=== PATIENT | male | born 1955 | race Caucasian/White ===

== ENCOUNTER 2025-01-19 09:10 | Day surgery (SDC) | payer MEDICARE, BC, SELFPAY ==
[2025-01-19] VITALS (13 sets, daily range): BP systolic 113–132; BP diastolic 49–75; PULSE 16–77; RESP 14–77; TEMP 36.4–37; O2SAT 92–99; BMI 29.4
--- OUTSIDE RECORDS SUMMARY | 2025-01-19 09:16 | XMS_ITS ---
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 Past Treatment and Therapy Plans No past plan information found. Radiation Treatments * Course 1X Prostate bed 03/09/2018 - 05/03/2018 Treatment Period Energy Fraction Dose Fractions Total Dose Plans Planned F1 prost bed 04/05/2018 - 05/03/2018 180 cGy 39 / 39 7,020 cGy Reference Points Delivered [id number] 04/05/2018 - 05/03/2018 7,020 cGy icru ref 04/05/2018 - 04/08/2018 4,269 cGy
--- OUTSIDE RECORDS SUMMARY | 2025-01-19 09:16 | XMS_ITS | Clinical Summary ---
Author Organization [facility] Address [address] [place] [address] Care Team Providers Care Bar Finish Operator Name Role Phone Unavailable Primary Care Provider Unavailabl e Source Comments Patient records contain information from all sites at [facility]. For routine questions regarding patient records, call [phone] during business hours, M-F 8:00 AM - 5:00 PM Central Time. Record requests for emergency care only can be directed to [phone] at any time.[facility] Allergies No known active allergies Medications LORazepam (ATIVAN) 0.5 mg tablet Take 1 tablet by mouth as needed for anxiety. anxiety 01/15/2018 Active atorvastatin (LIPITOR) 40 mg tablet Take 1 tablet by mouth at bedtime. 12/20/2020 Active Active Problems Problem Noted Date Diagnosed Date Rising Prostate Specific Ant igen Following Treatment For Malignant Cancer Of Prostate 06/09/2023 Primary Malignant Neoplasm Of Prostate 8 Social History Tobacco Use Types Packs/Day Years Used Date Smoking Tobacco: Never Smokeless Tobacco: Never Tobacco Cessation:Counseling Given: Not Answered Humiliation, Afraid, Rape, and Kick questionnair e Answer Date Recorded Within the last year, have y ou been afraid of your partner or ex-partner? No 06/04/2023 Within the last year, have y ou been humiliated or emotionally abused in other ways by your partner or ex-partner? No Within the last year, have y ou been kicked, hit, slapped, or otherwise physically hurt by your partner or ex-partner? No 06/04/2023 Within the last year, have y ou been raped or forced to have any kind of sexual activity by your partner or ex-partner? No 06/04/2023 Social Connection and Isolat ion Panel [NHANES] Answer Date Recorded In a typical week, how many times do you talk on the phone with family, friends, or neighbors? Once a week 05/05/2022 How often do you get togethe r with friends or relatives? Once a week 05/05/2022 How often do you attend chur ch or amish services? Never 05/05/2022 Do you belong to any clubs o r organizations such as anglican groups, unions, fraternal or athletic groups, or school groups? Yes 05/05/2022 How often do you attend meet ings of the clubs or organizations you belong to? More than 4 times per year 05/05/2022 Are you , , di vorced, , never , or living with a partner? 05/05/2022 AUDIT-C Answer Date Recorded Q1: How often do you have a drink containing alc ohol? 2-3 times a week 05/05/2022 Q2: How many drinks containi ng alcohol do you have on a typical day when you are drinking? 1 or 2 05/05/2022 Q3: How often do you have si x or more drinks on one occasion? Never 05/05/2022 Overall Financial Resource Strain (CARDIA) Answe r Date Recorded How hard is it for you to pa y for the very basics like food, housing, medical care, and heating? Not hard at all 06/04/2023 [facility] - Occupational Stress Questionnaire Answer Date Recorded Do you feel stress - tense, restless, nervous, or anxious, or unable to sleep at night because your mind is troubled all the time - these days? To some extent 05/05/2022 Exercise Vital Sign Answer Date Recorde d On average, how many days pe r week do you engage in moderate to strenuous exercise (like a brisk walk)? 3 days 06/04/2023 On average, how many minutes do you engage in exercise at this level? 30 min 06/04/2023 Hunger Vital Sign Answer Date Recorded Within the past 12 months, y ou worried that your food would run out before you got the money to buy more. Never true 06/04/20 23 Within the past 12 months, t he food you bought just didn't last and you didn't have money to get more. Never true 06/04/2023 PRAPARE - Transportation Answer Date Re corded In the past 12 months, has l ack of transportation kept you from medical appointments or from getting medications? No 04/2023 In the past 12 months, has l ack of transportation kept you from meetings, work, or from getting things needed for daily living? No 06/04/2023 Nutrition Answer Date Recorded Nutrition: EVOO Fat Source Yes 06/04 On average, how many serving s of fruits and vegetables do you eat per day (serving size is equal to 1 cup or approximately the size of a tennis ball)? 3-5 06/04/2023 Dental Answer Date Recorded Dental: Regular Dentist Yes 05/05/20 Employment Answer Date Recorded Employment status Retired 06/04/2023 Housing Stability Answer Date Recorded What is your living situation today? I have a [facility] place to live 06/04/2023 Education Answer Date Recorded What is the highest level of school you have completed or the highest degree you have received? 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 Body Mass Index 30.04 03/01/2018 10:47 AM CDT Plan of Treatment Health Maintenance Due Date Last Done Comments CT Colonography 1957 Cologuard 1957 FIT 1955 Hepatitis C Screening 1955 COVID-19 Vaccine ( season) 2024 12/04/2023, 12/17/2022, 04/23/2022, Additional history exists Influenza Vaccine (#1) 2024 , 12/17/2022, 09/10/2021, Additional history exists Depression Screening (Annual PHQ-2) 11/30/2024 Fall Risk Screen (Annual) 11/30/2024 Fasting Glucose for Diabetes Screening 12/04/2026 12/04/2023, 04/23/2022, 12/20/2020, Additional history exists DTaP,Tdap,and Td Vaccines (3 - Td or Tdap) 12/14/2029 12/14/2019, 07/11/2010 Colonoscopy 11/13/2032 11/13/2022 Colorectal Cancer Screening 11/13/2032 Zoster Vaccines Completed 04/23/2022, 12/20/2020 Pneumococcal vaccine (50+ years) Completed 12/17/2022 IPV Vaccines Aged Out No longer eligi ble based on patient's age to complete this topic Insurance [facility]
--- OUTSIDE RECORDS SUMMARY | 2025-01-19 09:16 | XMS_ITS | Clinical Summary ---
Author Organization [employer] [facility] Address [address] [place] [address] Care Team Providers Care Netbackup Engineer Name Role Phone Dillon Sanders MD Primary Care Provider Aysha Gonzalez RN Unavailable Allergies No known active allergies Medications aspirin (ECOTRIN) 81 mg enteric coated tabletIndications: Type 2 diabetes mellitus without complication, without long-term current use of insulin (HC) Take 1 Tablet (81 mg) by mouth once daily with a meal. 4 Active atorvastatin (LIPITOR) 40 mg tabletIndications: Mixed hyperlipidemia Take 1 Tablet (40 mg) by mouth at bedtime. 90 Tablet 3 5 Active LORazepam (ATIVAN) 0.5 mg tabIndications:Anx iety Take one tablet by mouth twice daily as needed for anxiety 20 Tablet 5 Active LORazepam (ATIVAN) 0.5 mg tabIndications:Anx iety Take one tablet by mouth twice daily as needed for anxiety 20 Tablet 4 12/30/19 25 Discontin ued(Reord er (E-cancel not sent)) atorvastatin (LIPITOR) 40 mg tabletIndications: Mixed hyperlipidemia TAKE ONE TABLET BY MOUTH AT BEDTIME . 90 Tablet 5 12/30/19 25 Discontin ued(Reord er (E-cancel not sent)) Active Problems Problem Noted Date Diagnosed Date Overweight 03/16/2024 Type 2 diabetes mellitus wit hout complication, without long-term current use of insulin 12/15/2023 Inguinal hernia, right 12/04/2023 Mixed hyperlipidemia 08/29/2015 Colon polyp 10/31/2011 Overview (11/18/2022): Colonoscopy 10/2011 polyps repeat in 3 years Colonoscopy 07/2017 hyperplastic polyp repeat in 5 years Colonoscopy 10/2022 polyps, repeat in 5 years High triglycerides 06/25/2011 Umbilical hernia without mention of obstruction or gangrene 06/25/2011 Malignant neoplasm of prostate 06/15/2007 Resolved Problems Problem Noted Date Diagnosed Date Resolved Date Low HDL (under 40) 10/08/2011 Left knee pain 06/25/2011 04/23/2022 Routine general medical exam ination at a health care facility 06/25/2011 12/20/2020 Renal colic 06/15/2007 04/23/2022 Prediabetes 12/15/2023 Encounters Date Type Department Care Team Description 01/16/2025 9:45 AM [employer]YWALL FINISHING FOREMAN Ancillary Procedure [address] [address] Arrived 01/15/2025 Travel 01/04/2025 9:30 AM [employer]YWALL FINISHING FOREMAN Office Visit [address] [address] Jocelyn Galvez MD Consult (Right inguinal hernia) 01/04/2025 Travel 12/31/2024 Travel 12/30/2024 9:15 AM [employer]YWALL FINISHING FOREMAN Office Visit [address] [address] Dillon Sanders MD Medicare ANNUAL (subsequent) Visit (69 year old); Follow Up (Discuss hernia) 12/30/2024 Travel 12/26/2024 Travel 12/09/[address] [place] [address] Dillon Sanders MD Refill Request (Atorvastatin) from Last 3 Months Immunizations Name Administration Dates Next Due COVID-19 VACCINE SPIKEVAX (M ODERNA 50MCG/0.5ML) 12YO+ PFS 12/30/2024,12/04/2023 COVID-19 vaccine (DataSphereBio NTech 30mcg/0.3mL) 12YO+ BIVALENT PF, MDV 12/17/2022 COVID-19 vaccine (Perosphere-Bio NTech 30mcg/0.3mL) 12YO+ KATHY-SUCROSE PF, MDV 04/23/2022 COVID-19 vaccine (Pfizer-Bio NTech 30mcg/0.3mL) PF, MDV 03/05/2021,02/12/2021 Influenza A (H1N1), Inactivated 11/13/2009 Influenza Virus, Unspecified 08/20/2015 Influenza, IIV3 (Age >=3 years) 08/25/2011,08/30 Influenza, IIV4 11/13/2016,09/05/2013 Influenza, IIV4 (=>6mos) MDV 08/17/2020, 09/26/2019,08/31/2018,2016,08/20/2015 Influenza, Inactivated AIIV4 (Age 65+ Years) Preserv Free 12/04/2023,12/17/2022 Influenza, Inactivated IIV3 (Age 65+ Years) Preserv Free 12/30/2024 Influenza, Injectable, Mdck, Quadrivalent, W/preservative 09/10/2021 Pneumococcal Conj 20-valent (Prevnar 20) 12/17/2022 Td (Age >=7 Years) 07/10/1998 Td, Preservative Free (age > = 7 Years) 12/14/2019 Tdap 07/11/2010 Zoster (Shingrix-RZV, recombinant) 04/23/2022, Family History Medical History Relation Name Comments Diabetes Brother 1 Bernardino Diabetes Mother Rafael Cancer-colon Neg. 1 Heart Disease Neg. 2 Cancer Paternal Grandfather Melanom a: at age 57 if meloma Diabetes Sister 2 Jerrianne Anesthesia Problem No Family History Blood Disease No Family History Relation Name Status Comments Brother 1 Bernardino Alive Brother 2 J Carlos Alive Brother 3 Ford Alive Father Felipe Alive Mother Rafael Alive Neg. 1 Neg. 2 Paternal Grandfather Sister 1 Jerriann Alive Sister 2 Jerrianne Social History Tobacco Use Types Packs/Day Years Used Date Smoking Tobacco: Former Pipe Smokeless Tobacco: Never Tobacco Cessation:Counseling Given: No Alcohol Use Standard Drinks/Week Comments Not Currently 0 (1 standard drink = 0.6 oz pur e alcohol) PHQ-2 Answer Date Recorded PHQ-2 TOTAL SCORE 0 12/30/2024 Social Connections Answer Date Recorded Do you often feel lonely or isolated from those around you? 0 12/30/2024 Financial Resource Strain Answer Date R ecorded Difficulty of Paying Living Expenses 3 12/30/2024 Difficulty of Paying Living Expenses Not on file 12/30/2024 Food Insecurity Answer Date Recorded Do you worry your food will run out before you are able to buy more? 1 12/30/2024 Transportation Needs Answer Date Record ed Does lack of transportation keep you from medica l appointments? 1 12/30/2024 Does lack of transportation keep you from work, meetings or getting things that you need? 1 12/30/2024 Housing Stability Answer Date Recorded What is your housing situation today? 1 12/30/2024 Utilities Answer Date Recorded Do you have trouble paying f or utilities (for example, heat, electricity, water, phone)? 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 Not on file Not on file Obstetrics History Last Filed Vital Signs Vital Sign Reading Time Taken Comments Blood Pressure 126/74 01/04/2025 9:23 AM DRYWALL FINISHING FOREMAN Pulse 75 01/04/2025 9:23 AM DRYWALL FINISHING FOREMAN Temperature 37.1 C (98.8 F) 12/03/2022 1:51 PM DRYWALL FINISHING FOREMAN Respiratory Rate - - Oxygen Saturation 100% 01/04/2025 9:23 AM DRYWALL FINISHING FOREMAN Inhaled Oxygen Concentration - - Weight 89.4 kg (197 lb 1.6 oz) 01/04/2025 9:23 A M [employer]YW[employer] FINISHING FOREMAN Height 172.7 cm (5' 8) 12/30/2024 9:11 AM DRYWALL FINISHING FOREMAN Body Mass Index 29.97 12/30/2024 9:11 AM DRYWALL FINISHING FOREMAN Plan of Treatment Health Maintenance Due Date Last Done Comments COVID-19 vaccine series ( season) 2025 12/30/2024, 12/04/2023, 12/17/2022, Additional history exists BMI (ht and wt on same day) for age 18+ 12/30/2025 12/30/2024, 12/04/2023, 04/23/2022, Additional history exists Depression screening for age 12+ 12/30/2025 12/30/2024, 12/04/2023, 12/04/2023, Additional history exists Medicare Wellness for age 65+ 12/31/2025 12/30/2024, 12/04/2023 Colonoscopy through age 75 11/13/202711/13, 11/13/2022, 11/13/2022, Additional history exists Tetanus booster 12/14/2029 12/14/2019, 06/30, 07/10/1998 Lipids for age 45-75 12/30/2029 12/30/2024, 12/04/2023, 04/23/2022, Additional history exists RSV vaccine for adults or (1 - 1-dose 75+ series) 2032 Tdap Completed 07/11/2010 Hepatitis C screening for ag e 18-79 Completed 08/21/2015, 08/21/2015 Zoster (shingles) series for age 50+ Completed 04/23/2022, 12/20/2020 Pneumococcal series for age 50+ Completed 3 Influenza for age 65+ Completed 12/30/2024 , 12/04/2023, 12/17/2022, Additional history exists AAA screening age 65-74 Completed 01/16/2025 Procedures Procedure Name Priority Date/Time Associated Diagnosis Comments US AORTA Routine 01/16/2025 10:03 AM DRYWALL FINISHING FOREMAN Screening for AAA (abdominal aortic aneurysm) LIPID PANEL W REFLEX MEASURED LDL Routine 12/30/2024 10:05 AM DRYWALL FINISHING FOREMAN Type 2 diabetes mellitus without complication, without long-term current use of insulin (HC) PSA TOTAL Routine 12/30/2024 10:05 AM DRYWALL FINISHING FOREMAN Prostate cancer (HC) BASIC METABOLIC PANEL Routine 12/30/2024 10:05 AM DRYWALL FINISHING FOREMAN Type 2 diabetes mellitus without complication, without long-term current use of insulin (HC) VITAMIN D 25 (DEFICIENCY) Routine 12/30/2024 10:05 AM DRYWALL FINISHING FOREMAN Vitamin D insufficiency HEMOGLOBIN A1C MONITORING (POCT) Routine 12/30/2024 10:04 AM DRYWALL FINISHING FOREMAN Type 2 diabetes mellitus without complication, without long-term current use of insulin (HC) URINE ALBUMIN TO CREATININE RATIO, RANDOM Routine 12/30/2024 10:03 AM DRYWALL FINISHING FOREMAN Type 2 diabetes mellitus without complication, without long-term current use of insulin (HC) COLONOSCOPY SCREENING Routine 11/13/2022 9:34 AM DRYWALL FINISHING FOREMAN History of colon polyps ANTI HCV Routine 08/21/2015 9:00 AM CDT Need for hepatitis C screening test from Last 3 Months or Most Recently Relevant to Health Maintenance Results * US AORTA (01/16/2025 10:03 AM DRYWALL FINISHING FOREMAN) Anatomical Region Laterality Modality Abdomen, AORTA Ultrasound 01/16/2025 12:5 6 PM DRYWALL FINISHING FOREMAN Narrative 01/16/2025 12:56 PM DRYWALL FINISHING FOREMAN For Patients: As a result of the Cures Act, medical imaging exams and procedure reports are released immediately into your electronic medical record. You may view this report before your referring provider. If you have questions, please contact your health care provider. Indication: Screening for abdominal aortic aneurysm Technique: Ultrasound aorta utilizing grayscale and color flow techniques Comparison: None Findings: Proximal aorta: Obscured by bowel gas. Mid aorta: 2.2 x 2.0 centimeters. Distal aorta: 1.8 by 2.0 centimeters. Right common iliac: 1.3 centimeters. Left common iliac: 1.1 centimeter. No significant atherosclerotic calcifications. Vessels are patent by color flow. Impression: No abdominal aortic aneurysm. Dictated by Keo Crooks MD @ 01/16/2025 12:56:24 PM (Electronically Signed) Procedure Note Keo Crooks MD - 01/16/2025 For Patients: As a result of the Cures Act, medical imagingexams and procedure reports are released immediately into your electronicmedical record. You may view this report before your referring provider.If you have questions, please contact your health care provider. Indication: Screening for abdominal aortic aneurysm Technique: Ultrasound aorta utilizing grayscale and color flow techniques Comparison: None Findings: Proximal aorta: Obscured by bowel gas. Mid aorta: 2.2 x 2.0 centimeters. Distal aorta: 1.8 by 2.0 centimeters. Right common iliac: 1.3 centimeters. Left common iliac: 1.1 centimeter. No significant atherosclerotic calcifications. Vessels are patent by color flow. Impression: No abdominal aortic aneurysm. Dictated by Keo Crooks MD @ 01/16/2025 12:56:24 PM (Electronically Signed) Dillon Sanders MD Final Result * (ABNORMAL) LIPID PANEL W REFLEX MEASURED LDL (12/30/2024 10:05 AM DRYWALL FINISHING FOREMAN) CHOLESTEROL, TOTAL 116 <200 mg/dL [facility] HDL CHOLESTEROL 30(L) > OR = 40 mg/dL [facility] TRIGLYCERIDES 73 <150 mg/dL [facility] LDL-CHOLESTEROL 71 mg/dL (calc) [facility] Comment: Reference range: <100 Desirable range <100 mg/dL for primary prevention; <70 mg/dL for patients with CHD or diabetic patients with > or = 2 CHD risk factors. LDL-C is now calculated using the Elie-Campbell calculation, which is a validated novel method providing better accuracy than the Friedewald equation in the estimation of LDL-C. Elie SS et al. PORTIA. 2013;310(19): 3788-7716 (http://education.Neozone.ice/faq/CTF748) CHOL/HDLC RATIO 3.9 <5.0 (calc) [facility] NON HDL CHOLESTEROL 86 <130 mg/dL (calc) [facility] Comment: For patients with diabetes plus 1 major ASCVD risk factor, treating to a non-HDL-C goal of <100 mg/dL (LDL-C of <70 mg/dL) is considered a therapeutic option. Blood BLOOD SPECIMEN / Unknown 12/30/2024 10:05 AM DRYWALL FINISHING FOREMAN 12/30/2024 10:05 AM DRYWALL FINISHING FOREMAN us Dillon Sanders MD CHEMISTRY Final Result Performing Organization Address [facility]/State/ZIP Co de Phone Number [employer] [facility] [address] [place] [address], [place] [phone] [facility] [address] [place] [address] * VITAMIN D 25 (DEFICIENCY) (12/30/2024 10:05 AM DRYWALL FINISHING FOREMAN) VITAMIN D,25-OH,TOTAL,IA 34 30 - 100 ng/mL [facility] Comment: Vitamin D Status 25-OH Vitamin D: Deficiency: <20 ng/mL Insufficiency: 20 - 29 ng/mL Optimal: > or = 30 ng/mL For 25-OH Vitamin D testing on patients on D2-supplementation and patients for whom quantitation of D2 and D3 fractions is required, the [facility](TM) 25-OH VIT D, (D2,D3), LC/MS/MS is recommended: order code 69017 (patients >2yrs). See Note 1 Note 1 For additional information, please refer to http://education.Perception Software/faq/IOM001 (This link is being provided for informational/ educational purposes only.) Blood BLOOD SPECIMEN / Unknown 12/30/2024 10:05 AM DRYWALL FINISHING FOREMAN 12/30/2024 10:05 AM DRYWALL FINISHING FOREMAN us Dillon Sanders MD SEND OUTS Final Result [employer] [facility] [address] [place] [address], [place] [phone] [facility] [address] [place] [address] * PSA TOTAL (12/30/2024 10:05 AM DRYWALL FINISHING FOREMAN) PSA, TOTAL <0.04 < OR = 4.00 ng/mL [facility] Comment: The total PSA value from this assay system is standardized against the WHO standard. The test result will be approximately 20% lower when compared to the equimolar-standardized total PSA ([place]). Comparison of serial PSA results should be interpreted with this fact in mind. This test was performed using the Siemens chemiluminescent method. Values obtained from different assay methods cannot be used interchangeably. PSA levels, regardless of value, should not be interpreted as absolute evidence of the presence or absence of disease. Blood BLOOD SPECIMEN / Unknown 12/30/2024 10:05 AM DRYWALL FINISHING FOREMAN 12/30/2024 10:05 AM DRYWALL FINISHING FOREMAN Dillon Sanders MD CHEMISTRY Final Result [employer] [facility] [address] [place] [address], [facility] [address] [place] [address] * (ABNORMAL) BASIC METABOLIC PANEL (12/30/2024 10:05 AM DRYWALL FINISHING FOREMAN) GLUCOSE 117(H) 65 - 99 mg/dL [facility] Comment: Fasting reference interval For someone without known diabetes, a glucose value between 100 and 125 mg/dL is consistent with prediabetes and should be confirmed with a follow-up test. UREA NITROGEN (BUN) 15 7 - 25 mg/dL [facility] CREATININE 0.90 0.70 - 1.35 mg/dL [facility] EGFR 94 > OR = 60 mL/min/1. 73m2 [facility] BUN/CREATININE RATIO SEE NOTE: 6 - 22 (calc) [facility] Comment: Not Reported: BUN and Creatinine are within reference range. SODIUM 138 135 - 146 mmol/L [facility] POTASSIUM 4.4 3.5 - 5.3 mmol/L [facility] CHLORIDE 104 98 - 110 mmol/L [facility] CARBON DIOXIDE 25 20 - 32 mmol/L [facility] ELECTROLYTE BALANCE 9 7 - 17 mmol/L (calc) [facility] CALCIUM 9.5 8.6 - 10.3 mg/dL [facility] Blood BLOOD SPECIMEN / Unknown 12/30/2024 10:05 AM DRYWALL FINISHING FOREMAN 12/30/2024 10:05 AM DRYWALL FINISHING FOREMAN Dillon Sanders MD CHEMISTRY Final Result Performing Organization Address City/[facility]/ZIP Co de Phone Number [employer] [facility] [address] [place] [address], [facility] [address] [place] [address] * (ABNORMAL) HEMOGLOBIN A1C MONITORING (POCT) (12/30/2024 10:04 AM DRYWALL FINISHING FOREMAN) Pathologist [facility] POC HEMOGLOBIN A1C 6.2(H) <6.0 % OF TOTAL HGB [facility] Comment: Any point of care results exhibiting inconsistency with the patient's clinical status should be repeated using a different testing method. Blood BLOOD SPECIMEN / Unknown 12/30/2024 10:04 AM DRYWALL FINISHING FOREMAN 12/30/2024 10:05 AM DRYWALL FINISHING FOREMAN Dillon Sanders MD CHEMISTRY Final Result Performing Organization Address City/[facility]/ZIP Co de Phone Number [facility] [address] [place] [address], [facility] [address] [place] [address] * URINE ALBUMIN TO CREATININE RATIO, RANDOM (12/30/2024 10:03 AM DRYWALL FINISHING FOREMAN) ALB RAND URINE 14.0 mg/L 12/30/2024 5:29 PM DRYWALL FINISHING FOREMAN [facility] CREATININE,URIN E 2.17 g/L 12/30/2024 5:29 PM DRYWALL FINISHING FOREMAN [facility] ALBUMIN TO CREATININE RATIO,RAND UR 6.5 <30.0 mg/g creat 12/30/2024 5:29 PM DRYWALL FINISHING FOREMAN [facility] Urine URINE SPECIMEN / Unknown Non-Blood / Unknown 12/30/2024 10:03 AM DRYWALL FINISHING FOREMAN 12/30/2024 10:03 AM DRYWALL FINISHING FOREMAN Narrative [facility] - 12/30/2024 5:29 PM DRYWALL FINISHING FOREMAN If Albumin to Creatinine Ratio is elevated, consider the following: Elevations seen with incipient nephropathy associated with diabetes mellitus or hypertension. Stress, exercise,hematuria, and urinary tract infection may also produce elevated results. If clinically indicated, confirm with 24 Hour Albumin to Creatinine Ratio. Dillon Sanders MD URINE Final Result [facility] [address] [place] [address], [place] * COLONOSCOPY (11/13/2022 9:55 AM DRYWALL FINISHING FOREMAN) 11/13/2022 9:55 AM [employer]YWALL FINISHING FOREMAN Narrative Transcriptions Elie Pettit MD - 11/13/2022 10:36 AM CST Patient Name: Ravi Contreras Procedure Date: 11/13/2022 Gender: Male Date of : 1955 Admit Type: Outpatient Procedure: Colonoscopy Proceduralist: Elie Pettit MD , Paloma Esposito RN (Nurse), Patricia Fontaine (Nurse) Referring MD: Dillon Sanders Indications/Pre-Op Diagnosis: High risk colon cancer surveillance:Personal history of adenoma less than 10 mm in size, Last colonoscopy: August 2017 Medications: Fentanyl 100 micrograms IV, Midazolam 4 mgIV, The level of sedation administered wasmoderate Procedure Description: The patient had risks, benefits and alternatives explained to andgave informed consent. The patient had a stable cardiopulmonary status and judged an adequate candidate for conscious sedation. The endoscope [id number] was passed through the anus andadvanced to the cecum, identified by appendiceal orifice and ileocecal valve.The colonoscopy was performed without difficulty. The patient toleratedthe procedure well. The quality of the bowel preparation was good. The ileocecal valve, appendiceal orifice, and rectum were photographed. Complications: No immediate complications. Estimated Blood Loss & Specimen: Estimated blood loss: none. Specimen collected - Yes and sent to Laboratory Findings: The perianal and digital rectal examinations were normal. Two sessile polyps were found in the sigmoid colon. The polyps were 3mm in size. These polyps were removed with a cold snare. Resection was complete, but the polyp tissue was only partially retrieved. A 3 mm polyp was found in the ascending colon. The polyp was sessile. The polyp was removed with a cold snare. Resection and retrieval were complete. A 4 mm polyp was found in the transverse colon. The polyp wassessile. The polyp was removed with a cold snare. Resection and retrieval were complete. A 2 mm polyp was found in the transverse colon. The polyp wassessile. The polyp was removed with a cold biopsy forceps. Resection and retrieval were complete. A few small-mouthed diverticula were found in the sigmoid colon. The exam was otherwise without abnormality. Impressions/Post-Op Diagnosis: - Two 3 mm polyps in the sigmoid colon, removed with a cold snare. Complete resection. Partial retrieval. - One 3 mm polyp in the ascending colon, removed with a cold snare. Resected and retrieved. - One 4 mm polyp in the transverse colon, removed with a cold snare. Resected and retrieved. - One 2 mm polyp in the transverse colon, removed with a cold biopsy forceps. Resected and retrieved. - Diverticulosis in the sigmoid colon. - The examination was otherwise normal. Recommendation: - Patient has a contact number available for emergencies. The signsand symptoms of potential delayed complications were discussed with the patient. Return to normal activities tomorrow. Written discharge instructions were provided to the patient. - Resume previous diet. - Continue present medications. - Await pathology results. - Repeat colonoscopy is recommended. The colonoscopy date will be determined after pathology results from today's exam become available for review. Moderate Sedation: A time out was performed before the procedure. Moderate (conscious) sedation was administered by the endoscopy nurse and supervised bythe endoscopist. The following parameters were monitored: oxygensaturation, heart rate, blood pressure, EKG, CO2, respiratory rate, adequacy of pulmonary ventilation and reponse to care. Please refer to the patient's medical record flowsheets and nursing notes for moderate sedation details. Total physician intraservice time was 23 minutes. Elie Pettit MD 11/13/2022 10:36:25 AM This report has been signed electronically. Note Initiated On: 11/13/2022 9:55 AM Procedure Code(s): --- Professional --- 34514, Colonoscopy, flexible; with removalof tumor(s), polyp(s), or other lesion(s) bysnare technique 71591, 59, Colonoscopy, flexible; withbiopsy, single or multiple Diagnosis Code(s): --- Professional --- Z86.010, Personal history of colonicpolyps D12.5, Benign neoplasm of sigmoid colon D12.2, Benign neoplasm of ascending colon D12.3, Benign neoplasm of transverse colon (hepatic flexure or splenic flexure) K57.30, Diverticulosis of large intestine without perforation or abscess withoutbleeding CPT copyright 2020 [employer]. All rights reserved. The codes documented in this report are preliminary and upon pet nutrition specialist reviewmay be revised to meet current compliance requirements. Scope In: 10:10:11 AM Scope Withdrawal Time 0 hours 10 minutes 46 seconds Scope Out: 10:30:11 AM us Elie Pettit MD PROCEDURE ORD Final Res ult * (ABNORMAL) ANTI HCV [78572.2] (08/21/2015 9:00 AM CDT) HEPATITIS C ANTIBODY Reactive, Preliminary Positive(A) Non-React bette 08/22/2015 10:12 AM CDT [facility] Blood specimen (specimen) BLOOD SPECIMEN / Unknown Venipuncture / Unknown 08/21/2015 9:00 AM CDT 08/21/2015 9:00 AM CDT Narrative [facility] - 08/22/2015 10:12 AM CDT Presumptive evidence of antibodies to HCV. Reflexed to HCV RNA Quant (See separate report). us Dillon Sanders MD SEND OUTS Final Result [facility] [address] [place] [address], [place] from Last 3 Months or Most Recently Relevant to Health Maintenance Insurance [employer] BLUE MR PB ONLY Advance Directives Documents on File Type Date Recorded Patient Chip Crusher Operator Expl anation Healthcare Directive 01/05/2024 1:59 PM 202 4 Care Teams Netbackup Engineer Relationship Specialty Start Date End Date Dillon Sanders MD [facility] [place] [address] PCP - General Family Practice 07/23/15 Aysha Gonzalez, RN [address] [facility] [place] [id number] [employer] 12/31/23
[2025-01-19] MEDS: LACTATED RINGERS 1000 ML 1,000 ML 100 ML IV (10:00)
[2025-01-19] MEDS: SODIUM CHLORIDE 0.9 % (FLUSH) 10 ML SYRINGE IVF (10:00)
--- NOTE | 2025-01-19 10:09 | W.PM.H&PU ---
History & Physical Update History & Physical Update H&P Reviewed and patient assessed: No changes noted
[2025-01-19] MEDS: CEFAZOLIN 2 GM INJ IVP (10:32)
[2025-01-19] MEDS: BUPIVACAINE 0.25% 30 ML INJECTION (12:20)
--- NOTE | 2025-01-19 12:53 | P.ANES_ITS ---
Anesthesia Charges Start Date/Time Anesthesia Start Date: 01/19/25 Anesthesia Start Time: 10:24 Stop Date/Time Anesthesia Stop Date: 01/19/25 Anesthesia Stop Time: 12:43 Coding CPT Codes CPT Codes: ANESTH REPAIR OF HERNIA - 92664 ([id number]) P2 - PATIENT W/MILD SYST DISEASE, QK - HADOOP SOFTWARE ENGINEER 2-4 CNCRNT ANES PROC, QX - FUR PULLER SVC W/ MD MED DIRECTION
--- NOTE | 2025-01-19 12:53 | W.ANESCHARGE ---
Anesthesia Charges Start Date/Time Anesthesia Start Date: 01/19/25 Anesthesia Start Time: 10:24 Stop Date/Time Anesthesia Stop Date: 01/19/25 Anesthesia Stop Time: 12:43 Coding CPT Codes CPT Codes: ANESTH REPAIR OF HERNIA - 86289 ([id number]) P2 - PATIENT W/MILD SYST DISEASE, QK - WATERPROOFING MIXER 2-4 CNCRNT ANES PROC, QX - TOWER CONTROL OPERATOR SVC W/ MD MED DIRECTION
[2025-01-19] MEDS: fentaNYL 100 MCG/2 ML inj 50 MCG IVP ×2 (12:55→13:00)
--- NOTE | 2025-01-19 13:42 | P.ANES_ITS ---
Anesthesia Charges Start Date/Time Anesthesia Start Date: 01/19/25 Anesthesia Start Time: 10:24 Stop Date/Time Anesthesia Stop Date: 01/19/25 Anesthesia Stop Time: 12:43 Coding CPT Codes CPT Codes: ANESTH REPAIR OF HERNIA - 26384 ([id number]) P2 - PATIENT W/MILD SYST DISEASE, QK - WEIGHT YARDAGE CHECKER 2-4 CNCRNT ANES PROC, QX - DIRECTIONAL SURVEY DRAFTER SVC W/ MD MED DIRECTION
--- NOTE | 2025-01-19 13:42 | W.ANESCHARGE ---
Anesthesia Charges Start Date/Time Anesthesia Start Date: 01/19/25 Anesthesia Start Time: 10:24 Stop Date/Time Anesthesia Stop Date: 01/19/25 Anesthesia Stop Time: 12:43 Coding CPT Codes CPT Codes: ANESTH REPAIR OF HERNIA - 90573 ([id number]) P2 - PATIENT W/MILD SYST DISEASE, QK - MOUNTED POLICE OFFICER 2-4 CNCRNT ANES PROC, QX - KEYLINER SVC W/ MD MED DIRECTION
--- NOTE | 2025-01-19 13:43 | P.GSOP_ITS ---
Operative Note Date of procedure: 01/19/25 Pre-op diagnosis: 1. Right inguinal hernia, reducible intra-abdominal fat 2. Umbilical hernia with incarcerated preperitoneal fat Post-op diagnosis: Same Type of Procedure: 1. Open right inguinal hernia repair with placement of mesh 2. Open umbilical hernia repair, primary Indications: Patient is a 69-year-old male who presented to clinic with a symptomatic right inguinal hernia, as well as an umbilical hernia. Different treatment options were reviewed, please see consultation note for full discussion. Risks and benefits of operative intervention were discussed at length with the patient. Risks included but was not limited to: Bleeding, infection, risk of damage to surrounding structures, possible need for additional procedures, risk of recurrence and postoperative complications such as pneumonia, pulmonary emboli or ND. All questions and concerns were addressed with the patient agreeing to proceed. Procedure Description: After discussing the risks and benefits of the procedure, the patient signed informed consent.? The operative site was marked and the patient was brought to the operating room and placed on the operating table in supine position.? Care was taken to pad the patient's pressure points.?? The patient was then intubated by anesthesia.?? The operative site was then prepped and draped in the usual sterile fashion.? A time-out was then performed. Attention was 1st directed to the right groin. Local anesthetic was injected into the skin and subcutaneous tissue overlying the inguinal canal. An oblique incision would was made over the external ring. Dissection was carried down into the subcutaneous tissue using cautery until the external oblique fascia was encountered. A large vein within the subcutaneous space was identified and tied off with 3-0 Vicryl ties. Overlying fat of the external oblique fascia was cleared off. The external ring was identified and after injection of more local anesthetic, the external oblique was incised using a knife. This was extended using the Metzenbaum scissors with care to dissect the underlying cord structures away before cutting. The cord was cleared from the inside of the inguinal canal and looped with a Alfredo drain. A large indirect inguinal hernia was identified. The hernia sac was day of dissected off of the cord structures. There was no evidence of any intra- abdominal contents present. The hernia sac was then ligated with a 3-0 Vicryl stick tie and the proximal end reduced into the abdomen. Evidence of a small direct hernia on the floor of the inguinal canal. The ilioinguinal nerve was identified in the operative field and ligated with 3-0 Vicryl ties. A piece of soft Bard polypropylene mesh was obtained and cut to size. This was secured to the pubic tubercle using interrupted 0 Nurolon suture. The 0 Nurolon sutures were placed interrupted along the inguinal ligament and superiorly along the transversalis fascia securing the tails behind the cord and recreating the internal ring. The wound was examined for hemostasis, which was excellent. The external oblique fascia was then reapproximated with absorbable suture. The wound was then closed in layers including Toya's fascia and the dermis with the cervical suture. The skin was then closed with a running subcuticular suture. Sterile dressings were applied. I then moved on to the umbilical hernia portion of the procedure. A curvilinear incision was made at the umbilicus. Dissection was carried down into the subcutaneous tissue using cautery. The hernia sac was encountered and care was taken to not enter it. Dissection was taken down to the fascia, and the umbilic al stock was carefully dissected off of the hernia sac. Once the hernia sac was dissected out circumferentially, it was reduced. The fascial edges were then cleared circumferentially. The hernia was less than 1 cm in size and so the decision was made for primary closure. Hemostasis was assured. The fascial opening was closed with several interrupted 0 Nurolon sutures. Local anesthetic was injected into the fascia, skin and subcutaneous tissues. The umbilicus was reapproximated to the fascia with 3-0 Vicryl. The skin was then closed with running absorbable suture. A sterile dressing was then applied. ? The patient was then woken and transported to the recovery area in stable condition. ? The patient tolerated the procedure well. Findings: Right inguinal hernia, umbilical hernia Anesthesia: MYAH Surgeon: Jocelyn Galvez MD Estimated blood loss (mL): 15 Condition: stable Disposition: PACU
[2025-01-19] MEDS: HYDROCODONE-ACETAMIN 5-325 MG 1 TAB PO ×2 (13:54→14:30)
--- NOTE | 2025-01-19 14:44 | SUR.PHASEII ---
While pt getting dressing he expressed pain, wheelchair out to car, with .
== END 2025-01-19 14:48 | disposition home or self-care (01) ==
PROVIDERS: PCP Family Medicine; Visit Provider Surgery
PROC: (CPT 49505; principal; 2025-01-19 10:15)
DX: K40.90 Unilateral inguinal hernia, without obstruction or gangrene, not specified as recurrent (principal); K42.0 Umbilical hernia with obstruction, without gangrene
CPT/HCPCS: 49505; 49591; 00830; A9270; C1781; J0330; J0665; J0690; J1100; J1171; J2250; J2405; J2704; J2710; J3010; J7120